=== PATIENT | male | born 1990 | race Caucasian/White ===

== ENCOUNTER 2023-05-12 12:39 | Inpatient (IN) | payer BC, OTHER ==
[~2023-05-12] VITALS: Ht 188 cm; Wt 99.8 kg
[2023-05-12 12:40] VITALS: BP_SYST 142; PULSE 68; RESP 18; TEMP 97.6; O2SAT 100
[2023-05-12 13:59] LABS: ANION GAP 7 (5-15); CALCIUM 8.7 mg/dL (8.4-11.0); CARBON DIOXIDE 28 mmol/L (23-29); CHLORIDE 102 mmol/L (98-107); CREATININE 0.78 mg/dL (0.55-1.30); GFR AFRICAN AMERICAN 149 mL/min (>90); GLUCOSE 94 mg/dL (74-106); POTASSIUM 4.2 mmol/L (3.5-5.1); SODIUM SERUM 137 mmol/L (136-145); UREA NITROGEN, BLOOD 11 mg/dL (8-21)
[2023-05-12 14:00] LABS: GFR NON AFRICAN-AMERICAN 123 mL/min (>90)
[2023-05-12 14:03] LABS: PROTHROMBIN TIME 10.4 SECS (9.5-12.5)
[2023-05-12 14:07] LABS: CHOLESTEROL 198 mg/dL (<200); HDL CHOLESTEROL 69 mg/dL (>45); TRIGLYCERIDES 69 mg/dL (30-150)
[2023-05-12 14:15] LABS: BASOPHILS # (AUTO) 0.1 K/uL (0.0-0.2); BASOPHILS % (AUTO) 1.7 % (0.0-2.0); EOSINOPHILS # (AUTO) 0.1 K/uL (0.0-0.4); EOSINOPHILS % (AUTO) 1.7 % (0.0-4.0); HEMATOCRIT 42.8 % (36-54); HEMOGLOBIN 14.4 g/dL (14.0-18.0); LYMPHOCYTES # (AUTO) 2.4 K/uL (1.0-5.5); LYMPHOCYTES % (AUTO) 37.7 % (20.5-51.5); MEAN CORPUSCULAR HEMOGLOBIN 30 pg (27-31); MEAN CORPUSCULAR HGB CONC 34 % (32-36); MEAN CORPUSCULAR VOLUME 89 fL (79.0-98.0); MONOCYTES # (AUTO) 0.5 K/uL (0.0-1.0); MONOCYTES % (AUTO) 7.7 % (1.7-9.3); NEUTROPHILS # (AUTO) 3.2 K/uL (1.8-7.7); NEUTROPHILS % (AUTO) 51.2 % (40.0-70.0); PLATELET COUNT (AUTO) 298 K/uL (130-430); RED BLOOD CELL COUNT(AUTO) 4.83 MIL/uL (4.2-6.2); RED CELL DISTRIBUTION WIDTH 13.9 % (9.0-15.0); WHITE BLOOD COUNT (AUTO) 6.2 K/uL (4.8-10.8)
[2023-05-12 14:28] LABS: HEMOGLOBIN A1C 5.38 % (<5.7)
[2023-05-12] MEDS ORDERED: ASPIRIN 81 MG TABLET(ECOTRIN) PO ONE (15:15)
[2023-05-12 18:19] LABS: BILIRUBIN,URINE NEGATIVE (NEGATIVE); BLOOD, URINE NEGATIVE (NEGATIVE); CLARITY/URINE CLEAR (CLEAR); COLOR,URINE YELLOW (YELLOW); GLUCOSE,URINE NEGATIVE (NEGATIVE); KETONES,URINE NEGATIVE (NEGATIVE); LEUKOCYTE ESTERASE ,URINE NEGATIVE (NEGATIVE); NITRITE, URINE NEGATIVE (NEGATIVE); PH,URINE 5.5 (5.0-8.0); PROTEIN URINE NEGATIVE (NEGATIVE); UROBILINOGEN,URINE 0.2 (0.2-1.0)
[2023-05-12 18:41] LABS: BARBITURATE, URINE NEGATIVE (NEG <=200); CANNABINOID, URINE POSITIVE (NEG <=50)
[2023-05-12 18:42] LABS: BENZODIAZEPINE, URINE NEGATIVE (NEG <=150); COCAINE, URINE NEGATIVE (NEG <=150); METHAMPHETAMINES SCREEN,URINE NEGATIVE (NEG <=500); OPIATE, URINE NEGATIVE (NEG <=100); PHENCYCLIDINE SCREEN,URINE NEGATIVE (NEG <=25); UR TRICYCLIC ANTIDEPRESSANTS NEGATIVE (NEG <=300); URINE AMPHETAMINE NEGATIVE (NEG <=500); URINE METHADONE NEGATIVE (NEG <=200); URINE OXYCODONE SCREEN NEGATIVE (NEG <=100)
[2023-05-12] MEDS: NORMAL SALINE 5 ML DISP.SYRIN IVF SCH (22:44)
[2023-05-13 04:44] LABS: BASOPHILS % (AUTO) 0.5 % (0.0-2.0); EOSINOPHILS # (AUTO) 0.2 K/uL (0.0-0.4); EOSINOPHILS % (AUTO) 2.2 % (0.0-4.0); HEMATOCRIT 41.2 % (36-54); HEMOGLOBIN 14.1 g/dL (14.0-18.0); LYMPHOCYTES # (AUTO) 3.1 K/uL (1.0-5.5); MEAN CORPUSCULAR HEMOGLOBIN 30 pg (27-31); MEAN CORPUSCULAR HGB CONC 34 % (32-36); MEAN CORPUSCULAR VOLUME 89 fL (79.0-98.0); MONOCYTES # (AUTO) 0.5 K/uL (0.0-1.0); MONOCYTES % (AUTO) 6.8 % (1.7-9.3); NEUTROPHILS % (AUTO) 50.5 % (40.0-70.0); PLATELET COUNT (AUTO) 284 K/uL (130-430); RED BLOOD CELL COUNT(AUTO) 4.66 MIL/uL (4.2-6.2); RED CELL DISTRIBUTION WIDTH 13.5 % (9.0-15.0); WHITE BLOOD COUNT (AUTO) 7.8 K/uL (4.8-10.8)
[2023-05-13 04:59] LABS: CALCIUM 8.9 mg/dL (8.4-11.0); CREATININE 0.87 mg/dL (0.55-1.30); POTASSIUM 3.8 mmol/L (3.5-5.1)
[2023-05-13 05:02] LABS: ALBUMIN 3.7 g/dL (3.4-4.8); TOTAL BILIRUBIN 0.8 mg/dL (0.0-1.0); TOTAL PROTEIN, SERUM 6.9 g/dL (6.4-8.3)
[2023-05-13] MEDS: NORMAL SALINE 5 ML DISP.SYRIN IVF SCH ×2 (07:30→13:55)
[2023-05-13 15:46] VITALS: BP_SYST 120; PULSE 56; RESP 16; TEMP 97.8; O2SAT 99
== END 2023-05-13 17:40 | disposition home or self-care (01) | DRG 69 ==
LOC: SED 12:39 → STU 20:07
PROVIDERS: ADMIT Internal Medicine; ATTEND Internal Medicine
DX: G45.9 Transient cerebral ischemic attack, unspecified (principal); J45.909 Unspecified asthma, uncomplicated
CPT/HCPCS: 36415; 70450; 70496; 70498; 70551; 71045; 72141; 76376; 80048; 80053; 80061; 80307; 81001; 81003; 82962; 83037; 84443; 84484; 85025; 85610-TC; 85730-TC; 86886; 86900; 86901; 93005; 99285; G0378; Q9967

== ENCOUNTER 2023-06-18 09:04 | Emergency (ER) | payer BC, OTHER ==
[~2023-06-18] VITALS: Ht 188 cm; Wt 102.1 kg
[2023-06-18 09:25] VITALS: BP_SYST 135; PULSE 72; RESP 18; TEMP 97; O2SAT 98
[2023-06-18] MEDS ORDERED: SULF15DR6 RIGHT EYE (09:34)
== END 2023-06-18 09:51 | disposition home or self-care (01) ==
LOC: SED 09:04
DX: H00.011 Hordeolum externum right upper eyelid (principal); J45.909 Unspecified asthma, uncomplicated; Z79.899 Other long term (current) drug therapy
CPT/HCPCS: 99283

== ENCOUNTER 2023-12-07 11:31 | Emergency (ER) | payer BC, MEDICAID ==
[~2023-12-07] VITALS: Ht 188 cm; Wt 99.8 kg
[~2023-12-07 11:31] MED LIST: SULF15DR6 RIGHT EYE
[2023-12-07 11:35] VITALS: BP_SYST 131; PULSE 74; RESP 18; TEMP 97.9; O2SAT 99
[2023-12-07] MEDS ORDERED: CLON1TAB12 PO (12:15)
[2023-12-07 12:32] VITALS: BP_SYST 131; PULSE 74; RESP 18; TEMP 97.9; O2SAT 99
== END 2023-12-07 12:34 | disposition home or self-care (01) ==
LOC: SED 11:31
DX: M54.50 Low back pain, unspecified (principal); J45.909 Unspecified asthma, uncomplicated; Z79.899 Other long term (current) drug therapy; Z79.2 Long term (current) use of antibiotics
CPT/HCPCS: 99283